=== PATIENT | female | born 1940 | race Caucasian/White ===

== ENCOUNTER → 2017-10-21 | Day surgery (SDC) | payer OTHER ==
[~2017-10-21] VITALS: Ht 175.3 cm; Wt 79.4 kg
--- NOTE | 2017-10-21 09:15 | Operative Report ---
Operative/Inv Procedure Report Surgery Date: 10/21/17 Name of Procedure: Intrathecal Morphine Bolus - 400 robby PF Morphine sulfate injection Pre-Operative Diagnosis: Chronic back pain, S/P Lumbar / Thoracic and cervical spine surgery, in the past Post-Operative Diagnosis: Same Estimated Blood Loss: none Surgeon/Medical And Health Services Manager: Home Beyer MD Asst: None Anesthesia: local monitored anesthesi Monitors: Per Anesthesia IV Fluids: Per Anesthesia Implants: None Urine Output: Per Anesthesia Drains: None Specimens: None Microbiology: None Tourniquet: None Complications: None Condition: Stable Operative Indication: Ms. Glasgow is 77 Year Old female with chronic Lower and mid back pain . She is S/P fusion surgery of Lumbar spine and Thoracic and cervical spine surgery as well. She has been on Fentanyl 75 robby/hr Patch for long time with inadequate pain relief. She expressed interest in the Intrathecal Opioid bolus trial. I discussed with the pt about the risks and benefits of the procedure and she agreed , consented to proceed ahead. She did have some side effect with Morphine during one of the abdominal surgical procedures, However, did report tolerating IV morphine, later on during one of her admissions to [facility]. Operative/Procedure Note Note: The Patient was brought to OR #5, placed prone with appropriate pressure point support. 2 Gm. cefazolin was given IV prior to the procedure. The Thoraco lumbar spine was prepped and draped sterile 2% Lidocaine was used for local infiltration. AP / Lat/ Oblique fluoroscopy was used for the procedure. 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 At L3/4 interlaminar space, with evidence of laminectomy at L 4 and L5 level, using 22 G x 3 Inch spinal needle the intrathecal space was accessed without Heme or paresthesia of lower extremities and free flow of CSF was observed from the hub of the needle. At this point 400 micrograms of Preservative free Morphine sulfate was drawn fresh from the 1mg/ml Morphine vial, and injected carefully in to the spinal fluid with free aspiration of CSF up to 2 cc at the beginning and the middle of the injection. At this point the needle was withdrawn, the puncture site dressed sterile. The pt tolerated the procedure well, Transferred to the PACU and will be observed for next 6 hrs for the observation of therapeutic benefits and side effects of IT morphine and will be discharged Home after 6 hrs observation. I did discuss with Dr. Tarsha MD Anesthesia,for required help, in the event of respiratory depression from IT morphine bolus. 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
--- NOTE | 2017-10-21 12:00 | RADIOLOGY REPORT ---
EXAMINATION: XR LUMBOSACRAL SPINE CLINICAL INFORMATION: C-arm was used in the operating room during a procedure. COMPARISON: None TECHNIQUE: A C-arm was utilized and 0.6 minutes of fluoroscopy was provided. 8 spot images were obtained. FINDINGS: Spot imaging demonstrates fixation in the lumbosacral spine with a radiopaque marker noted. The last image appears to demonstrate contrast layering probably in the thecal sac. IMPRESSION: Fluoroscopy provided in operating room as described above.
== END ==
LOC: STS 10-03 07:00
DX: M96.1 Postlaminectomy syndrome, not elsewhere classified (principal); M51.35 Other intervertebral disc degeneration, thoracolumbar region; M54.5 Low back pain; M17.9 Osteoarthritis of knee, unspecified; M46.1 Sacroiliitis, not elsewhere classified; Z96.643 Presence of artificial hip joint, bilateral; E03.9 Hypothyroidism, unspecified; G47.00 Insomnia, unspecified; Z98.84 Bariatric surgery status
CPT/HCPCS: 72100; J0690; J2001; J2250